=== PATIENT | female | born 1980 | race Hispanic/Latino ===

== ENCOUNTER → 2018-03-28 | Outpatient (CLI) | payer OTHER | END | disposition home or self-care (01) | LOC: RAH 07:47 | PROVIDERS: ATTEND Physician Assistant Medical | DX: N63.20 Unspecified lump in the left breast, unspecified quadrant (principal); N63.10 Unspecified lump in the right breast, unspecified quadrant; K76.0 Fatty (change of) liver, not elsewhere classified; G54.2 Cervical root disorders, not elsewhere classified; M99.85 Other biomechanical lesions of pelvic region | CPT/HCPCS: 76641; 76700; 76856 ==

== ENCOUNTER → 2018-04-12 | Outpatient (CLI) | payer OTHER ==
[~2018-04-12] MED LIST: LIDOCAINE 1%-EPI 1:100,000 20 ML VIAL IJ ONE
== END | disposition home or self-care (01) ==
LOC: EDSTATUS 10:00 → RAH 10:00
PROVIDERS: ATTEND Physician Assistant Medical
DX: N63.20 Unspecified lump in the left breast, unspecified quadrant (principal); N63.21 Unspecified lump in the left breast, upper outer quadrant; N60.22 Fibroadenosis of left breast; E11.9 Type 2 diabetes mellitus without complications; Z83.3 Family history of diabetes mellitus; Z82.49 Family history of ischemic heart disease and other diseases of the circulatory system; Z80.3 Family history of malignant neoplasm of breast; Z68.32 Body mass index [BMI] 32.0-32.9, adult; E78.2 Mixed hyperlipidemia; E66.3 Overweight
CPT/HCPCS: 19083; 88305; J3490; 76942